=== PATIENT | female | born 1970 | race Caucasian/White ===

== ENCOUNTER 2019-12-23 14:11 | Inpatient (IN) | payer OTHER ==
--- NOTE | 2019-12-23 14:07 | BHS.RME ---
Substance Use & Tx History - Substance Use History Heroin Substance amount: 2 bundles Frequency of use: Daily Substance route: Inhalation (ex: sniffing or snorting) Date of Last Use: 12/22/19 (started 6 months ago) Other Opiates/Synthetics Substance amount: oxycodone prescribed and then illicit use Frequency of use: Daily Substance route: Oral Date of Last Use: 12/02/19 (started 2 years ago) Nicotine Frequency of use: Daily Substance route: Smoking Physical/Psych/Mental Status - Behavior General Behavior: Increased activity (restlessness, agitation) Eye Contact: Normal - Cooperativeness Cooperativeness: Cooperative - Thinking Thought Processes: Tight, Logical, Goal Directed - Physical Health Problems Is patient presently having any pain?: No Does patient presently have any injuries (include location): No Does patient currently have a fever: No Is patient : No COWS - Scale Resting Pulse: 1= [place] 81-100 Sweatin= Beads of Sweat on Face Restless Observation: 1= Difficult to Sit Still Pupil Size: 1= Pupils >than Normal Bone or Joint Aches: 2= Severe Diffuse Aches Runny Nose/ Eye Tearin= Runny Nose/Eyes GI Upset > 30mins: 3= Vomiting/Diarrhea Tremor Observation: 1= Tremor [place], Not Seen Yawning Observation: 1= 1-2x During Session Anxiety or Irritability: 1=Feels Anxious/Irritable Goose Flesh Skin: 0=Smooth Skin COWS Score: 16
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
[2019-12-23] MEDS ORDERED: NICOTINE POLACRILEX 2 MG GUM BUC PRN (15:33)
[2019-12-23] MEDS ORDERED: BISMUTH SUBSALICYLATE 524 MG/30 ML UD PO PRN (15:33)
[2019-12-23] MEDS ORDERED: ACETAMINOPHEN 325 MG TABLET (FP) PO PRN (15:33)
[2019-12-23] MEDS ORDERED: MAGNESIUM HYDROX 2400MG/30ML ORAL SUSPENSION 30 ML CUP PO PRN (15:33)
[2019-12-23] MEDS ORDERED: MENTHOL/PHENOL 1 EACH UD MM PRN (15:33)
[2019-12-23] MEDS ORDERED: MAGNESIUM CITRATE 300 ML BOTTLE PO PRN (15:33)
[2019-12-23] MEDS ORDERED: cloNIDine HCL 0.1 MG TABLET PO PRN (15:33)
[2019-12-23] MEDS ORDERED: METHADONE HCL 10 MG TABLET (FOR DETOX USE ONLY) ONE (15:33)
[2019-12-23] MEDS ORDERED: MAG HYDROX/AL HYDROX/SIMETH 30 ML UNIT-DOSE CUP PO PRN (15:33)
[2019-12-23] MEDS ORDERED: METHADONE HCL 10 MG TABLET (FOR DETOX USE ONLY) PO ONE ×2 (15:33→15:36)
[2019-12-23 15:46] VITALS: BMI 37.3
[2019-12-23 16:50] LABS: MCH 23.1 pg (25.7-33.7); MCHC 30.4 g/dl (32.0-36.0); MEAN CELL VOLUME 75.8 fl (80-96); MEAN PLT VOLUME 9.5 fl (7.5-11.1); PLATELET COUNT 387 K/MM3 (134-434); RBC 4.35 M/mm3 (3.60-5.2); RDW 17.6 % (11.6-15.6); WHITE BLOOD COUNT 6.7 K/mm3 (4.0-10.0)
[2019-12-23 17:05] LABS: ALBUMIN 4.1 g/dl (3.4-5.0); BILIRUBIN,TOTAL 0.2 mg/dL (0.2-1); BLOOD UREA NITROGEN 8.2 mg/dL (7-18); CALCIUM 9.5 mg/dL (8.5-10.1); CREATININE 0.6 mg/dL (0.55-1.3); POTASSIUM 3.7 mmol/L (3.5-5.1); TOT PROT 7.7 g/dl (6.4-8.2)
[2019-12-23] MEDS: METHOCARBAMOL 500 MG TABLET PO PRN (18:00)
[2019-12-23] MEDS: hydrOXYzine PAMOATE 25 MG CAPSULE (FP) PO SCH ×2 (18:00→22:07)
[2019-12-23] MEDS: PRENATAL VITAMINS W/ FOLIC ACID TABLET (FP) PO SCH (18:39)
[2019-12-23] MEDS: NICOTINE 7 MG/24 HOURS TOPICAL PATCH TD SCH (18:39)
[2019-12-23] MEDS: ACETAMINOPHEN 325 MG TABLET (FP) PO PRN (19:23)
[2019-12-23] MEDS: IBUPROFEN 400 MG TABLET (FP) PO PRN (22:06)
[2019-12-23] MEDS: THIAMINE HCL 100 MG TABLET (FP) PO SCH (22:08)
[2019-12-23] MEDS: MELATONIN 5 MG TABLETS PO SCH (22:08)
[2019-12-24] MEDS: METHOCARBAMOL 500 MG TABLET PO PRN ×3 (01:54→17:27)
[2019-12-24] MEDS: hydrOXYzine PAMOATE 25 MG CAPSULE (FP) PO SCH ×5 (05:33→22:15)
[2019-12-24] MEDS: IBUPROFEN 400 MG TABLET (FP) PO PRN ×3 (05:35→23:33)
[2019-12-24] MEDS ORDERED: METHADONE HCL 10 MG TABLET (FOR DETOX USE ONLY) ONE (09:20)
[2019-12-24] MEDS ORDERED: METHADONE HCL 5 MG TABLET (FOR DETOX USE ONLY) ONE (09:21)
[2019-12-24] MEDS ORDERED: METHADONE (DETOX) 20 MG, METHADONE (DETOX) 5 MG PO ONE (10:00)
--- NOTE | 2019-12-24 10:13 | EKG ---
Test Reason : Blood Pressure : / mmHG Vent. Rate : 085 BPM Atrial Rate : 085 BPM P-R Int : 132 ms QRS Dur : 076 ms QT Int : 392 ms P-R-T Axes : 058 025 006 degrees QTc Int : 466 ms NORMAL SINUS RHYTHM NONSPECIFIC ST ABNORMALITY ABNORMAL ECG NO PREVIOUS ECGS AVAILABLE Confirmed by MD Sandie, Davey ([id number]) on 12/24/2019 10:13:23 AM Referred By: Confirmed By:Davey Hooper MD
[2019-12-24] MEDS: PRENATAL VITAMINS W/ FOLIC ACID TABLET (FP) PO SCH (10:27)
[2019-12-24] MEDS: diazePAM 5 MG TABLET PO PRN ×2 (10:28→22:15)
[2019-12-24] MEDS: NICOTINE 7 MG/24 HOURS TOPICAL PATCH TD SCH (10:30)
--- NOTE | 2019-12-24 10:51 | PN ---
S COWS - Scale Resting Pulse: 0= [place] 80 or Below Sweatin= No chills or Flushing Restless Observation: 0= Sits Still Pupil Size: 1= Pupils >than Normal Bone or Joint Aches: 2= Severe Diffuse Aches Runny Nose/ Eye Tearin= Runny Nose/Eyes GI Upset > 30mins: 2= Nausea/Diarrhea Tremor Observation of Outstretched Hands: 2= Slight Tremor Visible Yawning Observation: 1= 1-2x During Session Anxiety or Irritability: 2=Irritable/Anxious Goose Flesh Skin: 0=Smooth Skin COWS Score: 12 S Progress Note (SOAP) Subjective: alert,irritable,anxious,interrupted sleep,tremor,pain in the body and back,nausea Objective: 12/24/19 17:30 Vital Signs Temperature 97.5 F L 12/24/19 16:52 Pulse Rate 77 12/24/19 16:52 Respiratory Rate 18 12/24/19 16:52 Blood Pressure 113/78 12/24/19 16:52 O2 Sat by Pulse Oximetry (%) 96 12/24/19 08:37 12/24/19 17:30 Laboratory Last Values WBC 6.7 K/mm3 (4.0-10.0) 12/23/19 15:25 RBC 4.35 M/mm3 (3.60-5.2) 12/23/19 15:25 Hgb 10.0 GM/dL (10.7-15.3) L 12/23/19 15:25 Hct 33.0 % (32.4-45.2) 12/23/19 15:25 MCV 75.8 fl (80-96) L 12/23/19 15:25 MCH 23.1 pg (25.7-33.7) L 12/23/19 15:25 MCHC 30.4 g/dl (32.0-36.0) L 12/23/19 15:25 RDW 17.6 % (11.6-15.6) H 12/23/19 15:25 Plt Count 387 K/MM3 (134-434) 12/23/19 15:25 MPV 9.5 fl (7.5-11.1) 12/23/19 15:25 Sodium 140 mmol/L (136-145) 12/23/19 15:25 Potassium 3.7 mmol/L (3.5-5.1) 12/23/19 15:25 Chloride 107 mmol/L (98-107) 12/23/19 15:25 Carbon Dioxide 25 mmol/L (21-32) 12/23/19 15:25 Anion Gap 8 MMOL/L (8-16) 12/23/19 15:25 BUN 8.2 mg/dL (7-18) 12/23/19 15:25 Creatinine 0.6 mg/dL (0.55-1.3) 12/23/19 15:25 Est GFR (CKD-EPI)AfAm 125.80 12/23/19 15:25 Est GFR (CKD-EPI)NonAf 108.54 12/23/19 15:25 Random Glucose 128 mg/dL (74-106) H 12/23/19 15:25 Calcium 9.5 mg/dL (8.5-10.1) 12/23/19 15:25 Total Bilirubin 0.2 mg/dL (0.2-1) 12/23/19 15:25 AST 10 U/L (15-37) L 12/23/19 15:25 ALT 13 U/L (13-61) 12/23/19 15:25 Alkaline Phosphatase 83 U/L (45-117) 12/23/19 15:25 Total Protein 7.7 g/dl (6.4-8.2) 12/23/19 15:25 Albumin 4.1 g/dl (3.4-5.0) 12/23/19 15:25 Syphilis Serology Non-reactive (NONREACTIVE) 12/23/19 15:25 Assessment: 12/24/19 17:31 withdrawal symptom Plan: continue detox methadone regimen,fasting glucose in am,initial glucose 128
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
[2019-12-24] MEDS: ACETAMINOPHEN 325 MG TABLET (FP) PO PRN (19:45)
[2019-12-24] MEDS: ONDANSETRON *ODT* 4 MG TABLET SL PRN (19:46)
[2019-12-24] MEDS: THIAMINE HCL 100 MG TABLET (FP) PO SCH (22:15)
[2019-12-24] MEDS: MELATONIN 5 MG TABLETS PO SCH (22:15)
[2019-12-25] MEDS: diazePAM 5 MG TABLET PO PRN ×2 (03:51→18:11)
[2019-12-25] MEDS: ONDANSETRON *ODT* 4 MG TABLET SL PRN (03:51)
[2019-12-25] MEDS: METHOCARBAMOL 500 MG TABLET PO PRN ×2 (03:51→13:34)
[2019-12-25] MEDS: ACETAMINOPHEN 325 MG TABLET (FP) PO PRN ×2 (03:51→22:10)
[2019-12-25] MEDS: LEVOTHYROXINE NA 100 MCG TABLET (FP) PO SCH (05:59)
[2019-12-25] MEDS: IBUPROFEN 400 MG TABLET (FP) PO PRN (05:59)
[2019-12-25] MEDS: hydrOXYzine PAMOATE 25 MG CAPSULE (FP) PO SCH ×5 (06:00→22:09)
[2019-12-25] MEDS ORDERED: TRIMETHOBENZAMIDE HCL 200MG/2ML INJ IM PRN (08:52)
[2019-12-25] MEDS ORDERED: METHADONE HCL 10 MG TABLET (FOR DETOX USE ONLY) PO ONE (10:00)
[2019-12-25 10:35] LABS: HEMATOCRIT 29.6 % (32.4-45.2); HEMOGLOBIN 9.1 GM/dL (10.7-15.3); MCH 23.1 pg (25.7-33.7); MCHC 30.6 g/dl (32.0-36.0); MEAN CELL VOLUME 75.5 fl (80-96); MEAN PLT VOLUME 9.6 fl (7.5-11.1); PLATELET COUNT 302 K/MM3 (134-434); RBC 3.92 M/mm3 (3.60-5.2); RDW 17.6 % (11.6-15.6); WHITE BLOOD COUNT 6.1 K/mm3 (4.0-10.0)
[2019-12-25] MEDS: NICOTINE 7 MG/24 HOURS TOPICAL PATCH TD SCH (10:41)
[2019-12-25] MEDS: ESCITALOPRAM OXALATE 10 MG TABLET PO SCH (10:45)
[2019-12-25] MEDS: PRENATAL VITAMINS W/ FOLIC ACID TABLET (FP) PO SCH (10:45)
[2019-12-25] MEDS: IBUPROFEN 600 MG TABLET (FP) PO PRN (10:46)
[2019-12-25] MEDS: LIDOCAINE 5% TOPICAL PATCH TP SCH (12:09)
--- NOTE | 2019-12-25 12:56 | PN ---
S COWS - Scale Resting Pulse: 1= [place] 81-100 Sweatin= No chills or Flushing Restless Observation: 0= Sits Still Pupil Size: 1= Pupils >than Normal Bone or Joint Aches: 2= Severe Diffuse Aches Runny Nose/ Eye Tearin= Nasal Congestion GI Upset > 30mins: 3= Vomiting/Diarrhea Tremor Observation of Outstretched Hands: 2= Slight Tremor Visible Yawning Observation: 1= 1-2x During Session Anxiety or Irritability: 2=Irritable/Anxious Goose Flesh Skin: 0=Smooth Skin COWS Score: 13 BHS Progress Note (SOAP) Subjective: alert,irritable,anxious,nausea,vomiting,aching pain in the body,back,both knees,tremor Objective: 12/25/19 17:46 Vital Signs Temperature 97.7 F 12/25/19 12:51 Pulse Rate 84 12/25/19 12:51 Respiratory Rate 16 12/25/19 12:51 Blood Pressure 102/65 12/25/19 12:51 O2 Sat by Pulse Oximetry (%) 95 12/25/19 12:51 Laboratory Last Values WBC 6.1 K/mm3 (4.0-10.0) 12/25/19 07:00 RBC 3.92 M/mm3 (3.60-5.2) 12/25/19 07:00 Hgb 9.1 GM/dL (10.7-15.3) L 12/25/19 07:00 Hct 29.6 % (32.4-45.2) L 12/25/19 07:00 MCV 75.5 fl (80-96) L 12/25/19 07:00 MCH 23.1 pg (25.7-33.7) L 12/25/19 07:00 MCHC 30.6 g/dl (32.0-36.0) L 12/25/19 07:00 RDW 17.6 % (11.6-15.6) H 12/25/19 07:00 Plt Count 302 K/MM3 (134-434) D 12/25/19 07:00 MPV 9.6 fl (7.5-11.1) 12/25/19 07:00 Sodium 140 mmol/L (136-145) 12/23/19 15:25 Potassium 3.7 mmol/L (3.5-5.1) 12/23/19 15:25 Chloride 107 mmol/L (98-107) 12/23/19 15:25 Carbon Dioxide 25 mmol/L (21-32) 12/23/19 15:25 Anion Gap 8 MMOL/L (8-16) 12/23/19 15:25 BUN 8.2 mg/dL (7-18) 12/23/19 15:25 Creatinine 0.6 mg/dL (0.55-1.3) 12/23/19 15:25 Est GFR (CKD-EPI)AfAm 125.80 12/23/19 15:25 Est GFR (CKD-EPI)NonAf 108.54 12/23/19 15:25 Random Glucose 128 mg/dL (74-106) H 12/23/19 15:25 Fasting Glucose 75 mg/dL (74-106) 12/25/19 07:00 Calcium 9.5 mg/dL (8.5-10.1) 12/23/19 15:25 Total Bilirubin 0.2 mg/dL (0.2-1) 12/23/19 15:25 AST 10 U/L (15-37) L 12/23/19 15:25 ALT 13 U/L (13-61) 12/23/19 15:25 Alkaline Phosphatase 83 U/L (45-117) 12/23/19 15:25 Total Protein 7.7 g/dl (6.4-8.2) 12/23/19 15:25 Albumin 4.1 g/dl (3.4-5.0) 12/23/19 15:25 POC Urine HCG, Qual Negative 12/23/19 16:03 Syphilis Serology Non-reactive (NONREACTIVE) 12/23/19 15:25 COVID-19 (GIUSEPPE) Not detected (Not Detected) 12/23/19 16:35 Assessment: 12/25/19 17:47 withdrawal symptom Plan: continue detox methadone regimen,tigan 200 mgs im q 8hrs prn for vomiting and nausea,lidoderm patch both knees,increase motrintn to 600 mgs poq 6hrs prn for pain,close monitoring,psychiatric reevaluation
[2019-12-25] MEDS: MELATONIN 5 MG TABLETS PO SCH (22:08)
[2019-12-25] MEDS: LIDOCAINE PATCH REMOVAL MC SCH (22:08)
[2019-12-25] MEDS: THIAMINE HCL 100 MG TABLET (FP) PO SCH (22:09)
[2019-12-26] MEDS: IBUPROFEN 600 MG TABLET (FP) PO PRN ×3 (05:54→23:43)
[2019-12-26] MEDS: hydrOXYzine PAMOATE 25 MG CAPSULE (FP) PO SCH ×5 (05:54→22:28)
[2019-12-26] MEDS: diazePAM 5 MG TABLET PO PRN ×3 (05:54→22:28)
[2019-12-26] MEDS: LEVOTHYROXINE NA 100 MCG TABLET (FP) PO SCH (06:02)
[2019-12-26] MEDS ORDERED: METHADONE HCL 10 MG TABLET (FOR DETOX USE ONLY) ONE (08:50)
[2019-12-26] MEDS ORDERED: METHADONE HCL 5 MG TABLET (FOR DETOX USE ONLY) ONE (08:51)
[2019-12-26] MEDS: PRENATAL VITAMINS W/ FOLIC ACID TABLET (FP) PO SCH (09:17)
[2019-12-26] MEDS: LIDOCAINE 5% TOPICAL PATCH TP SCH (09:17)
[2019-12-26] MEDS: ESCITALOPRAM OXALATE 10 MG TABLET PO SCH (09:18)
[2019-12-26] MEDS: NICOTINE 7 MG/24 HOURS TOPICAL PATCH TD SCH (09:18)
[2019-12-26] MEDS ORDERED: METHADONE (DETOX) 10 MG, METHADONE (DETOX) 5 MG PO ONE (10:00)
[2019-12-26] MEDS: METHOCARBAMOL 500 MG TABLET PO PRN ×2 (10:23→17:57)
--- NOTE | 2019-12-26 10:28 | PN ---
BHS COWS - Scale Resting Pulse: 0= [place] 80 or Below Sweatin= No chills or Flushing Restless Observation: 0= Sits Still Pupil Size: 0= Normal to Room Light Bone or Joint Aches: 1= Mild Discomfort Runny Nose/ Eye Tearin= Runny Nose/Eyes GI Upset > 30mins: 2= Nausea/Diarrhea Tremor Observation of Outstretched Hands: 2= Slight Tremor Visible Yawning Observation: 1= 1-2x During Session Anxiety or Irritability: 2=Irritable/Anxious Goose Flesh Skin: 0=Smooth Skin COWS Score: 10 BHS Progress Note (SOAP) Subjective: alert,irritable,anxious,interrupted sleep,aching pain in the body,back,both knees,nausea,no vomiting Objective: 12/26/19 17:23 Laboratory Last Values WBC 6.1 K/mm3 (4.0-10.0) 12/25/19 07:00 RBC 3.92 M/mm3 (3.60-5.2) 12/25/19 07:00 Hgb 9.1 GM/dL (10.7-15.3) L 12/25/19 07:00 Hct 29.6 % (32.4-45.2) L 12/25/19 07:00 MCV 75.5 fl (80-96) L 12/25/19 07:00 MCH 23.1 pg (25.7-33.7) L 12/25/19 07:00 MCHC 30.6 g/dl (32.0-36.0) L 12/25/19 07:00 RDW 17.6 % (11.6-15.6) H 12/25/19 07:00 Plt Count 302 K/MM3 (134-434) D 12/25/19 07:00 MPV 9.6 fl (7.5-11.1) 12/25/19 07:00 Sodium 140 mmol/L (136-145) 12/23/19 15:25 Potassium 3.7 mmol/L (3.5-5.1) 12/23/19 15:25 Chloride 107 mmol/L (98-107) 12/23/19 15:25 Carbon Dioxide 25 mmol/L (21-32) 12/23/19 15:25 Anion Gap 8 MMOL/L (8-16) 12/23/19 15:25 BUN 8.2 mg/dL (7-18) 12/23/19 15:25 Creatinine 0.6 mg/dL (0.55-1.3) 12/23/19 15:25 Est GFR (CKD-EPI)AfAm 125.80 12/23/19 15:25 Est GFR (CKD-EPI)NonAf 108.54 12/23/19 15:25 Random Glucose 128 mg/dL (74-106) H 12/23/19 15:25 Fasting Glucose 75 mg/dL (74-106) 12/25/19 07:00 Calcium 9.5 mg/dL (8.5-10.1) 12/23/19 15:25 Total Bilirubin 0.2 mg/dL (0.2-1) 12/23/19 15:25 AST 10 U/L (15-37) L 12/23/19 15:25 ALT 13 U/L (13-61) 12/23/19 15:25 Alkaline Phosphatase 83 U/L (45-117) 12/23/19 15:25 Total Protein 7.7 g/dl (6.4-8.2) 12/23/19 15:25 Albumin 4.1 g/dl (3.4-5.0) 12/23/19 15:25 POC Urine HCG, Qual Negative 12/23/19 16:03 Syphilis Serology Non-reactive (NONREACTIVE) 12/23/19 15:25 COVID-19 (GIUSEPPE) Not detected (Not Detected) 12/23/19 16:35 Assessment: 12/26/19 17:23 withdrawal symptom Plan: continue detox methadone regimen,fluid
[2019-12-26] MEDS: LIDOCAINE PATCH REMOVAL MC SCH (22:27)
[2019-12-26] MEDS: MELATONIN 5 MG TABLETS PO SCH (22:27)
[2019-12-26] MEDS: THIAMINE HCL 100 MG TABLET (FP) PO SCH (22:28)
[2019-12-27] MEDS: METHOCARBAMOL 500 MG TABLET PO PRN ×3 (06:00→19:56)
[2019-12-27] MEDS: hydrOXYzine PAMOATE 25 MG CAPSULE (FP) PO SCH ×5 (06:01→22:25)
[2019-12-27] MEDS: LEVOTHYROXINE NA 100 MCG TABLET (FP) PO SCH (06:11)
[2019-12-27] MEDS: IBUPROFEN 600 MG TABLET (FP) PO PRN ×3 (06:11→19:57)
[2019-12-27] MEDS: PRENATAL VITAMINS W/ FOLIC ACID TABLET (FP) PO SCH (09:32)
[2019-12-27] MEDS: LIDOCAINE 5% TOPICAL PATCH TP SCH (09:32)
[2019-12-27] MEDS: ESCITALOPRAM OXALATE 10 MG TABLET PO SCH (09:34)
[2019-12-27] MEDS: NICOTINE 7 MG/24 HOURS TOPICAL PATCH TD SCH (09:35)
[2019-12-27] MEDS ORDERED: METHADONE HCL 10 MG TABLET (FOR DETOX USE ONLY) PO ONE (10:00)
--- NOTE | 2019-12-27 13:02 | PN ---
BHS COWS - Scale Resting Pulse: 0= [place] 80 or Below Sweatin= No chills or Flushing Restless Observation: 0= Sits Still Pupil Size: 0= Normal to Room Light Bone or Joint Aches: 2= Severe Diffuse Aches Runny Nose/ Eye Tearin= None GI Upset > 30mins: 1= Stomach Cramp Tremor Observation of Outstretched Hands: 0= None Yawning Observation: 0= None Anxiety or Irritability: 2=Irritable/Anxious Goose Flesh Skin: 0=Smooth Skin COWS Score: 5 BHS Progress Note (SOAP) Subjective: c/o mild withdrawal symptoms. Objective: 12/27/19 13:00 Vital Signs 12/27/19 12/27/19 12/27/19 05:55 08:50 12:36 Temperature 97.1 F L 97.1 F L 97.3 F L Pulse Rate 82 89 90 Respiratory 18 16 18 Rate Blood Pressure 106/74 126/72 133/89 O2 Sat by Pulse 96 97 Oximetry (%) Laboratory Last Values WBC 6.1 K/mm3 (4.0-10.0) 12/25/19 07:00 RBC 3.92 M/mm3 (3.60-5.2) 12/25/19 07:00 Hgb 9.1 GM/dL (10.7-15.3) L 12/25/19 07:00 Hct 29.6 % (32.4-45.2) L 12/25/19 07:00 MCV 75.5 fl (80-96) L 12/25/19 07:00 MCH 23.1 pg (25.7-33.7) L 12/25/19 07:00 MCHC 30.6 g/dl (32.0-36.0) L 12/25/19 07:00 RDW 17.6 % (11.6-15.6) H 12/25/19 07:00 Plt Count 302 K/MM3 (134-434) D 12/25/19 07:00 MPV 9.6 fl (7.5-11.1) 12/25/19 07:00 Sodium 140 mmol/L (136-145) 12/23/19 15:25 Potassium 3.7 mmol/L (3.5-5.1) 12/23/19 15:25 Chloride 107 mmol/L (98-107) 12/23/19 15:25 Carbon Dioxide 25 mmol/L (21-32) 12/23/19 15:25 Anion Gap 8 MMOL/L (8-16) 12/23/19 15:25 BUN 8.2 mg/dL (7-18) 12/23/19 15:25 Creatinine 0.6 mg/dL (0.55-1.3) 12/23/19 15:25 Est GFR (CKD-EPI)AfAm 125.80 12/23/19 15:25 Est GFR (CKD-EPI)NonAf 108.54 12/23/19 15:25 Random Glucose 128 mg/dL (74-106) H 12/23/19 15:25 Fasting Glucose 75 mg/dL (74-106) 12/25/19 07:00 Calcium 9.5 mg/dL (8.5-10.1) 12/23/19 15:25 Total Bilirubin 0.2 mg/dL (0.2-1) 12/23/19 15:25 AST 10 U/L (15-37) L 12/23/19 15:25 ALT 13 U/L (13-61) 12/23/19 15:25 Alkaline Phosphatase 83 U/L (45-117) 12/23/19 15:25 Total Protein 7.7 g/dl (6.4-8.2) 12/23/19 15:25 Albumin 4.1 g/dl (3.4-5.0) 12/23/19 15:25 POC Urine HCG, Qual Negative 12/23/19 16:03 Syphilis Serology Non-reactive (NONREACTIVE) 12/23/19 15:25 COVID-19 (GIUSEPPE) Not detected (Not Detected) 12/23/19 16:35 Labs noted. Assessment: 12/27/19 13:01 AOX3, in no acute respiratory distress. Full ROM, ambulating in the unit. Mild Withdrawal symptoms. For d/c tomorrow. Plan: continue detox. D/C in AM.
[2019-12-27 17:38] VITALS: TEMP 97.1
[2019-12-27] MEDS: ACETAMINOPHEN 325 MG TABLET (FP) PO PRN (17:38)
[2019-12-27] MEDS: THIAMINE HCL 100 MG TABLET (FP) PO SCH (22:25)
[2019-12-27] MEDS: MELATONIN 5 MG TABLETS PO SCH (22:25)
[2019-12-27] MEDS: LIDOCAINE PATCH REMOVAL MC SCH (22:26)
[2019-12-28] MEDS: ACETAMINOPHEN 325 MG TABLET (FP) PO PRN (00:47)
[2019-12-28] MEDS: METHOCARBAMOL 500 MG TABLET PO PRN (02:42)
[2019-12-28] MEDS: IBUPROFEN 600 MG TABLET (FP) PO PRN ×2 (02:45→08:55)
[2019-12-28] MEDS: hydrOXYzine PAMOATE 25 MG CAPSULE (FP) PO SCH (05:48)
[2019-12-28] MEDS ORDERED: METHADONE HCL 5 MG TABLET (FOR DETOX USE ONLY) PO ONE (06:00)
[2019-12-28 06:24] VITALS: BP 121/76; PULSE 77
[2019-12-28] MEDS: LEVOTHYROXINE NA 100 MCG TABLET (FP) PO SCH (06:41)
[2019-12-28] MEDS: ONDANSETRON *ODT* 4 MG TABLET SL PRN (08:55)
--- NOTE | 2019-12-28 13:12 | DS ---
[facility] Detox Discharge Summary Admission Date: 12/23/19 Discharge Date: 12/28/19 - History Present History: Opioid Dependence Additional Comments: Pt is medically cleared and discharged today. Pt completed the detox protocol. Pt is encouraged to follow-up with an outpatient CD program and also to follow- up with her pmd which she verbalized understanding. Pt is AOX3, in no acute respiratory distress, Full ROM, and ambulatory. Pertinent Past History: h/o heroin use disorder. - Physical Exam Results Vital Signs: Vital Signs Temperature 97.1 F L 12/28/19 06:24 Pulse Rate 77 12/28/19 06:24 Respiratory Rate 16 12/28/19 06:24 Blood Pressure 121/76 12/28/19 06:24 O2 Sat by Pulse Oximetry (%) 97 12/28/19 06:24 Vital Signs 12/28/19 06:24 Temperature 97.1 F L Pulse Rate 77 Respiratory 16 Rate Blood Pressure 121/76 O2 Sat by Pulse 97 Oximetry (%) Laboratory Last Values WBC 6.1 K/mm3 (4.0-10.0) 12/25/19 07:00 RBC 3.92 M/mm3 (3.60-5.2) 12/25/19 07:00 Hgb 9.1 GM/dL (10.7-15.3) L 12/25/19 07:00 Hct 29.6 % (32.4-45.2) L 12/25/19 07:00 MCV 75.5 fl (80-96) L 12/25/19 07:00 MCH 23.1 pg (25.7-33.7) L 12/25/19 07:00 MCHC 30.6 g/dl (32.0-36.0) L 12/25/19 07:00 RDW 17.6 % (11.6-15.6) H 12/25/19 07:00 Plt Count 302 K/MM3 (134-434) D 12/25/19 07:00 MPV 9.6 fl (7.5-11.1) 12/25/19 07:00 Sodium 140 mmol/L (136-145) 12/23/19 15:25 Potassium 3.7 mmol/L (3.5-5.1) 12/23/19 15:25 Chloride 107 mmol/L (98-107) 12/23/19 15:25 Carbon Dioxide 25 mmol/L (21-32) 12/23/19 15:25 Anion Gap 8 MMOL/L (8-16) 12/23/19 15:25 BUN 8.2 mg/dL (7-18) 12/23/19 15:25 Creatinine 0.6 mg/dL (0.55-1.3) 12/23/19 15:25 Est GFR (CKD-EPI)AfAm 125.80 12/23/19 15:25 Est GFR (CKD-EPI)NonAf 108.54 12/23/19 15:25 Random Glucose 128 mg/dL (74-106) H 12/23/19 15:25 Fasting Glucose 75 mg/dL (74-106) 12/25/19 07:00 Calcium 9.5 mg/dL (8.5-10.1) 12/23/19 15:25 Total Bilirubin 0.2 mg/dL (0.2-1) 12/23/19 15:25 AST 10 U/L (15-37) L 12/23/19 15:25 ALT 13 U/L (13-61) 12/23/19 15:25 Alkaline Phosphatase 83 U/L (45-117) 12/23/19 15:25 Total Protein 7.7 g/dl (6.4-8.2) 12/23/19 15:25 Albumin 4.1 g/dl (3.4-5.0) 12/23/19 15:25 POC Urine HCG, Qual Negative 12/23/19 16:03 Syphilis Serology Non-reactive (NONREACTIVE) 12/23/19 15:25 COVID-19 (GIUSEPPE) Not detected (Not Detected) 12/23/19 16:35 Pertinent Admission Physical Exam Findings: withdrawal symptoms. - Treatment Hospital Course: Detox Protocol Followed, Detoxed Safely, Responded well, Discharged Condition Good - Medication Discharge Medications: Ambulatory Orders Levothyroxine [Synthroid -] 100 mcg PO DAILY 12/23/19 - Diagnosis (1) Chronic low back pain Status: Chronic (2) Opioid dependence with withdrawal Status: Acute (3) Opioid use disorder Status: Chronic - AMA Did Patient Leave Against Medical Advice: No
== END 2019-12-28 09:10 | disposition home or self-care (01) | DRG 897 ==
LOC: YASAS 14:11 → Y3N 16:29
PROVIDERS: ADMIT Allergy & Immunology; ATTEND Allergy & Immunology
PROC: HZ2ZZZZ Detoxification Services for Substance Abuse Treatment (ICD-10-PCS; principal; 2019-12-23)
DX: F11.23 Opioid dependence with withdrawal (principal); F13.20 Sedative, hypnotic or anxiolytic dependence, uncomplicated; F17.210 Nicotine dependence, cigarettes, uncomplicated; F32.9 Major depressive disorder, single episode, unspecified; F41.9 Anxiety disorder, unspecified; F42.9 Obsessive-compulsive disorder, unspecified; E06.9 Thyroiditis, unspecified; M54.5 Low back pain; M23.300 Other meniscus derangements, unspecified lateral meniscus, right knee; M23.301 Other meniscus derangements, unspecified lateral meniscus, left knee; G89.29 Other chronic pain; E66.9 Obesity, unspecified; Z68.37 Body mass index [BMI] 37.0-37.9, adult; Z87.828 Personal history of other (healed) physical injury and trauma; Z88.0 Allergy status to penicillin
CPT/HCPCS: 36415; 80053; 81025; 82947; 85027; 86780; 93005; 93010; J0735; Q0162; U0003

== ENCOUNTER 2020-03-16 12:09 | Inpatient (IN) | payer OTHER ==
[2020-03-16 13:39] VITALS: BMI 37.6
[2020-03-16] MEDS ORDERED: MENTHOL/PHENOL 1 EACH UD MM PRN (14:11)
[2020-03-16] MEDS ORDERED: MAGNESIUM HYDROX 2400MG/30ML ORAL SUSPENSION 30 ML CUP PO PRN (14:11)
[2020-03-16] MEDS ORDERED: MAGNESIUM CITRATE 300 ML BOTTLE PO PRN (14:11)
[2020-03-16] MEDS ORDERED: ACETAMINOPHEN 325 MG TABLET (FP) PO PRN (14:11)
[2020-03-16] MEDS ORDERED: BISMUTH SUBSALICYLATE 524 MG/30 ML PO PRN (14:11)
[2020-03-16] MEDS ORDERED: NICOTINE POLACRILEX 2 MG GUM BUC PRN (14:11)
[2020-03-16] MEDS ORDERED: MAG HYDROX/AL HYDROX/SIMETH 30 ML UNIT-DOSE CUP PO PRN (14:11)
[2020-03-16] MEDS ORDERED: hydrOXYzine PAMOATE 25 MG CAPSULE (FP) PO ONE ×2 (15:09→15:35)
[2020-03-16] MEDS ORDERED: methaDONE HCL 10 MG TABLET (FOR DETOX USE ONLY) PO ONE (15:15)
[2020-03-16] MEDS ORDERED: methaDONE HCL 10 MG TABLET (FOR DETOX USE ONLY) ONE (15:29)
[2020-03-16] MEDS ORDERED: IBUPROFEN 400 MG TABLET (FP) PO ONE (15:36)
[2020-03-16] MEDS: IBUPROFEN 400 MG TABLET (FP) PO PRN (15:38)
[2020-03-16] MEDS: METHOCARBAMOL 500 MG TABLET PO PRN ×2 (17:05→22:43)
[2020-03-16] MEDS: cloNIDine HCL 0.1 MG TABLET PO PRN ×2 (17:05→22:43)
[2020-03-16 17:23] LABS: HEMATOCRIT 33.5 % (32.4-45.2); HEMOGLOBIN 10.1 GM/dL (10.7-15.3); MCH 22.7 pg (25.7-33.7); MCHC 30.1 g/dl (32.0-36.0); MEAN CELL VOLUME 75.6 fl (80-96); MEAN PLT VOLUME 9.4 fl (7.5-11.1); PLATELET COUNT 338 K/MM3 (134-434); RBC 4.44 M/mm3 (3.60-5.2); RDW 16.8 % (11.6-15.6)
[2020-03-16 17:28] LABS: ALBUMIN 4.1 g/dl (3.4-5.0); BLOOD UREA NITROGEN 9.5 mg/dL (7-18); CALCIUM 9.5 mg/dL (8.5-10.1)
[2020-03-16 17:32] LABS: CREATININE 0.6 mg/dL (0.55-1.3)
[2020-03-16 17:33] LABS: BILIRUBIN,TOTAL 0.3 mg/dL (0.2-1); TOT PROT 7.7 g/dl (6.4-8.2)
[2020-03-16] MEDS: hydrOXYzine PAMOATE 25 MG CAPSULE (FP) PO SCH ×2 (20:16→22:43)
[2020-03-16] MEDS: THIAMINE HCL 100 MG TABLET (FP) PO SCH (22:43)
[2020-03-16] MEDS: ACETAMINOPHEN 325 MG TABLET (FP) PO PRN (22:44)
[2020-03-16] MEDS: MELATONIN 5 MG TABLETS PO SCH (22:45)
[2020-03-17] MEDS: METHOCARBAMOL 500 MG TABLET PO PRN (05:40)
[2020-03-17] MEDS: hydrOXYzine PAMOATE 25 MG CAPSULE (FP) PO SCH ×5 (05:41→22:16)
[2020-03-17] MEDS: ACETAMINOPHEN 325 MG TABLET (FP) PO PRN (05:42)
[2020-03-17] MEDS: LEVOTHYROXINE NA 100 MCG TABLET (FP) PO SCH (06:07)
[2020-03-17] MEDS ORDERED: methaDONE HCL 10 MG TABLET (FOR DETOX USE ONLY) ONE (09:13)
[2020-03-17] MEDS: PRENATAL VITAMINS W/ FOLIC ACID TABLET (FP) PO SCH (10:06)
[2020-03-17] MEDS: IBUPROFEN 400 MG TABLET (FP) PO PRN ×3 (10:07→19:08)
[2020-03-17] MEDS ORDERED: ACETAMINOPHEN 325 MG TABLET (FP) PO PRN (11:31)
[2020-03-17] MEDS ORDERED: ACETAMINOPHEN 500 MG TABLET (FP) PO PRN (11:33)
[2020-03-17] MEDS: METHYL SALICYLATE/MENTHOL OINT 30 GM TUBE TP SCH (12:03)
[2020-03-17] MEDS: METHOCARBAMOL 750 MG TAB PO PRN ×2 (12:04→18:08)
[2020-03-17] MEDS: cloNIDine HCL 0.1 MG TABLET PO PRN (22:15)
[2020-03-17] MEDS: THIAMINE HCL 100 MG TABLET (FP) PO SCH (22:15)
[2020-03-17] MEDS: MELATONIN 5 MG TABLETS PO SCH (22:16)
[2020-03-18] MEDS: METHYL SALICYLATE/MENTHOL OINT 30 GM TUBE TP SCH ×3 (00:20→21:51)
[2020-03-18] MEDS: hydrOXYzine PAMOATE 25 MG CAPSULE (FP) PO SCH ×5 (07:08→21:48)
[2020-03-18] MEDS: LEVOTHYROXINE NA 100 MCG TABLET (FP) PO SCH (07:08)
[2020-03-18] MEDS: IBUPROFEN 400 MG TABLET (FP) PO PRN ×2 (07:34→15:51)
[2020-03-18] MEDS: METHOCARBAMOL 750 MG TAB PO PRN ×2 (08:38→15:51)
[2020-03-18] MEDS: ONDANSETRON *ODT* 4 MG TABLET SL PRN (08:39)
[2020-03-18] MEDS ORDERED: methaDONE HCL 10 MG TABLET (FOR DETOX USE ONLY) PO ONE (10:00)
[2020-03-18] MEDS: PRENATAL VITAMINS W/ FOLIC ACID TABLET (FP) PO SCH (10:05)
[2020-03-18] MEDS: diazePAM 5 MG TABLET PO PRN ×3 (11:33→21:48)
[2020-03-18] MEDS: LIDOCAINE 5% TOPICAL PATCH TP SCH (11:34)
[2020-03-18] MEDS: THIAMINE HCL 100 MG TABLET (FP) PO SCH (21:48)
[2020-03-18] MEDS: MELATONIN 5 MG TABLETS PO SCH (21:49)
[2020-03-18] MEDS: LIDOCAINE PATCH REMOVAL MC SCH (21:51)
[2020-03-19] MEDS: hydrOXYzine PAMOATE 25 MG CAPSULE (FP) PO SCH ×2 (06:32→10:13)
[2020-03-19] MEDS: LEVOTHYROXINE NA 100 MCG TABLET (FP) PO SCH (06:33)
[2020-03-19] MEDS: diazePAM 5 MG TABLET PO PRN ×3 (06:35→22:18)
[2020-03-19] MEDS: IBUPROFEN 400 MG TABLET (FP) PO PRN ×3 (06:36→22:19)
[2020-03-19] MEDS: METHOCARBAMOL 750 MG TAB PO PRN ×3 (06:52→22:18)
[2020-03-19] MEDS ORDERED: methaDONE HCL 10 MG TABLET (FOR DETOX USE ONLY) ONE (09:14)
[2020-03-19] MEDS: METHYL SALICYLATE/MENTHOL OINT 30 GM TUBE TP SCH ×2 (10:12→22:24)
[2020-03-19] MEDS: LIDOCAINE 5% TOPICAL PATCH TP SCH (10:13)
[2020-03-19] MEDS: PRENATAL VITAMINS W/ FOLIC ACID TABLET (FP) PO SCH (10:13)
[2020-03-19] MEDS ORDERED: hydrOXYzine PAMOATE 25 MG CAPSULE (FP) PO PRN (12:04)
[2020-03-19] MEDS ORDERED: HYDROCORTISONE 1% TOPICAL CREAM 30 GM TUBE TP PRN (13:48)
[2020-03-19] MEDS: ONDANSETRON *ODT* 4 MG TABLET SL PRN (17:37)
[2020-03-19] MEDS: MELATONIN 5 MG TABLETS PO SCH (22:21)
[2020-03-19] MEDS: THIAMINE HCL 100 MG TABLET (FP) PO SCH (22:21)
[2020-03-19] MEDS: LIDOCAINE PATCH REMOVAL MC SCH (22:23)
[2020-03-20] MEDS ORDERED: methaDONE HCL 10 MG TABLET (FOR DETOX USE ONLY) PO ONE ×2 (06:00→10:00)
[2020-03-20] MEDS: IBUPROFEN 400 MG TABLET (FP) PO PRN (06:08)
[2020-03-20] MEDS: METHOCARBAMOL 750 MG TAB PO PRN (06:08)
[2020-03-20] MEDS: LEVOTHYROXINE NA 100 MCG TABLET (FP) PO SCH (06:09)
[2020-03-20 08:56] VITALS: BP 132/88; PULSE 101; TEMP 97.3
[2020-03-20] MEDS: diazePAM 5 MG TABLET PO PRN (09:09)
== END 2020-03-20 11:10 | disposition home or self-care (01) | DRG 897 ==
LOC: YASAS 12:09 → Y6N 16:00
PROVIDERS: ADMIT Allergy & Immunology; ATTEND Allergy & Immunology
PROC: HZ2ZZZZ Detoxification Services for Substance Abuse Treatment (ICD-10-PCS; principal; 2020-03-16)
DX: F19.230 Other psychoactive substance dependence with withdrawal, uncomplicated (principal); F11.23 Opioid dependence with withdrawal; E03.9 Hypothyroidism, unspecified; R03.0 Elevated blood-pressure reading, without diagnosis of hypertension; D50.8 Other iron deficiency anemias; E86.0 Dehydration; E66.9 Obesity, unspecified; Z68.37 Body mass index [BMI] 37.0-37.9, adult; Z86.59 Personal history of other mental and behavioral disorders; Z88.0 Allergy status to penicillin; Z87.891 Personal history of nicotine dependence
CPT/HCPCS: 36415; 80053; 81025; 85027; 86780; C9803; J0735; Q0162; U0003

== ENCOUNTER 2020-09-08 12:36 | Inpatient (IN) | payer OTHER ==
[2020-09-08 14:21] VITALS: BMI 35.9
[2020-09-08] MEDS ORDERED: ONDANSETRON *ODT* 4 MG TABLET SL PRN (15:47)
[2020-09-08] MEDS ORDERED: METHOCARBAMOL 500 MG TABLET PO PRN (15:47)
[2020-09-08] MEDS ORDERED: METHADONE HCL 10 MG TABLET (FOR DETOX USE ONLY) PO ONE (15:47)
[2020-09-08] MEDS ORDERED: cloNIDine HCL 0.1 MG TABLET PO PRN (15:47)
[2020-09-08] MEDS ORDERED: NICOTINE POLACRILEX 2 MG GUM BUC PRN (15:47)
[2020-09-08] MEDS ORDERED: ACETAMINOPHEN 325 MG TABLET (FP) PO PRN (15:47)
[2020-09-08] MEDS ORDERED: BISMUTH SUBSALICYLATE 524 MG/30 ML PO PRN (15:47)
[2020-09-08] MEDS ORDERED: MAGNESIUM HYDROX 2400MG/30ML ORAL SUSPENSION 30 ML CUP PO PRN (15:47)
[2020-09-08] MEDS ORDERED: MENTHOL/PHENOL 1 EACH UD MM PRN (15:47)
[2020-09-08] MEDS ORDERED: MAG HYDROX/AL HYDROX/SIMETH 30 ML UNIT-DOSE CUP PO PRN (15:47)
[2020-09-08] MEDS ORDERED: MAGNESIUM CITRATE 300 ML BOTTLE PO PRN (15:47)
[2020-09-08] MEDS: LEVOTHYROXINE NA 25 MCG TABLET (FP) PO SCH (16:56)
[2020-09-08] MEDS: PRENATAL VITAMINS W/ FOLIC ACID TABLET (FP) PO SCH (16:57)
[2020-09-08] MEDS: NICOTINE 7 MG/24 HOURS TOPICAL PATCH TD SCH (16:57)
[2020-09-08] MEDS: IBUPROFEN 400 MG TABLET (FP) PO PRN (17:01)
[2020-09-08] MEDS: hydrOXYzine PAMOATE 25 MG CAPSULE (FP) PO SCH ×2 (18:01→21:45)
[2020-09-08] MEDS: ACETAMINOPHEN 325 MG TABLET (FP) PO PRN (21:44)
[2020-09-08] MEDS: THIAMINE HCL 100 MG TABLET (FP) PO SCH (21:45)
[2020-09-08] MEDS: MELATONIN 5 MG TABLETS PO SCH (21:47)
[2020-09-09] MEDS: LEVOTHYROXINE NA 25 MCG TABLET (FP) PO SCH (06:45)
[2020-09-09] MEDS: hydrOXYzine PAMOATE 25 MG CAPSULE (FP) PO SCH ×2 (06:46→09:48)
[2020-09-09] MEDS ORDERED: METHADONE HCL 10 MG TABLET (FOR DETOX USE ONLY) ONE (09:11)
[2020-09-09] MEDS ORDERED: METHADONE HCL 5 MG TABLET (FOR DETOX USE ONLY) ONE (09:12)
[2020-09-09] MEDS: PRENATAL VITAMINS W/ FOLIC ACID TABLET (FP) PO SCH (09:48)
[2020-09-09] MEDS: IBUPROFEN 400 MG TABLET (FP) PO PRN ×2 (09:48→22:24)
[2020-09-09] MEDS: NICOTINE 7 MG/24 HOURS TOPICAL PATCH TD SCH (09:49)
[2020-09-09] MEDS ORDERED: METHADONE (DETOX) 20 MG, METHADONE (DETOX) 5 MG PO ONE (10:00)
[2020-09-09 10:04] LABS: HEMATOCRIT 31.4 % (32.4-45.2); HEMOGLOBIN 9.5 GM/dL (10.7-15.3); MCH 21.3 pg (25.7-33.7); MCHC 30.2 g/dl (32.0-36.0); MEAN CELL VOLUME 70.7 fl (80-96); MEAN PLT VOLUME 9.2 fl (7.5-11.1); PLATELET COUNT 414 10^3/uL (134-434); RBC 4.44 M/mm3 (3.60-5.2); RDW 18.3 % (11.6-15.6); WHITE BLOOD COUNT 8.6 K/mm3 (4.0-10.0)
[2020-09-09 10:12] LABS: CALCIUM 9.2 mg/dL (8.5-10.1)
[2020-09-09 10:13] LABS: ALBUMIN 3.9 g/dl (3.4-5.0)
[2020-09-09 10:14] LABS: BLOOD UREA NITROGEN 9.3 mg/dL (7-18)
[2020-09-09 10:16] LABS: CREATININE 0.5 mg/dL (0.55-1.3)
[2020-09-09 10:18] LABS: BILIRUBIN,TOTAL 0.3 mg/dL (0.2-1); TOT PROT 7.4 g/dl (6.4-8.2)
[2020-09-09] MEDS ORDERED: LIDOCAINE 5% TOPICAL PATCH TP SCH (11:00)
[2020-09-09] MEDS ORDERED: buPROPion HCL 100 MG TABLET PO SCH (14:00)
[2020-09-09] MEDS: buPROPion HCL 100 MG TABLET PO SCH ×2 (14:18→18:20)
[2020-09-09] MEDS: ACETAMINOPHEN 325 MG TABLET (FP) PO PRN (15:21)
[2020-09-09] MEDS: MELATONIN 5 MG TABLETS PO SCH (22:20)
[2020-09-09] MEDS: THIAMINE HCL 100 MG TABLET (FP) PO SCH (22:20)
[2020-09-09] MEDS: diazePAM 5 MG TABLET PO PRN (22:25)
[2020-09-09] MEDS: LIDOCAINE PATCH REMOVAL MC SCH (22:57)
[2020-09-10] MEDS: LEVOTHYROXINE NA 25 MCG TABLET (FP) PO SCH (06:15)
[2020-09-10] MEDS: buPROPion HCL 100 MG TABLET PO SCH ×3 (06:15→17:45)
[2020-09-10] MEDS: ACETAMINOPHEN 325 MG TABLET (FP) PO PRN ×2 (07:22→22:13)
[2020-09-10] MEDS ORDERED: METHADONE HCL 10 MG TABLET (FOR DETOX USE ONLY) PO ONE (10:00)
[2020-09-10] MEDS: hydrOXYzine PAMOATE 25 MG CAPSULE (FP) PO PRN ×2 (10:08→22:12)
[2020-09-10] MEDS: PRENATAL VITAMINS W/ FOLIC ACID TABLET (FP) PO SCH (10:08)
[2020-09-10] MEDS: LIDOCAINE 5% TOPICAL PATCH TP SCH (10:09)
[2020-09-10] MEDS: NICOTINE 7 MG/24 HOURS TOPICAL PATCH TD SCH (10:09)
[2020-09-10] MEDS: METHOCARBAMOL 750 MG TABLET PO PRN ×2 (14:10→19:04)
[2020-09-10] MEDS: diazePAM 5 MG TABLET PO PRN ×2 (14:15→22:12)
[2020-09-10] MEDS: IBUPROFEN 400 MG TABLET (FP) PO PRN (17:43)
[2020-09-10] MEDS: THIAMINE HCL 100 MG TABLET (FP) PO SCH (22:12)
[2020-09-10] MEDS: MELATONIN 5 MG TABLETS PO SCH (22:12)
[2020-09-10] MEDS: LIDOCAINE PATCH REMOVAL MC SCH (23:33)
[2020-09-11] MEDS: METHOCARBAMOL 750 MG TABLET PO PRN ×4 (01:08→23:06)
[2020-09-11] MEDS: IBUPROFEN 400 MG TABLET (FP) PO PRN ×2 (01:12→15:56)
[2020-09-11] MEDS: ACETAMINOPHEN 325 MG TABLET (FP) PO PRN (05:56)
[2020-09-11] MEDS: buPROPion HCL 100 MG TABLET PO SCH ×3 (05:58→17:49)
[2020-09-11] MEDS: LEVOTHYROXINE NA 25 MCG TABLET (FP) PO SCH (06:20)
[2020-09-11] MEDS ORDERED: METHADONE HCL 10 MG TABLET (FOR DETOX USE ONLY) ONE (09:07)
[2020-09-11] MEDS ORDERED: METHADONE HCL 5 MG TABLET (FOR DETOX USE ONLY) ONE (09:07)
[2020-09-11] MEDS ORDERED: METHADONE (DETOX) 10 MG, METHADONE (DETOX) 5 MG PO ONE (10:00)
[2020-09-11] MEDS ORDERED: MELATONIN 5 MG TABLETS PO SCH (10:07)
[2020-09-11] MEDS: diazePAM 5 MG TABLET PO PRN ×3 (10:14→22:25)
[2020-09-11] MEDS: PRENATAL VITAMINS W/ FOLIC ACID TABLET (FP) PO SCH (10:14)
[2020-09-11] MEDS: LIDOCAINE 5% TOPICAL PATCH TP SCH (10:17)
[2020-09-11] MEDS: NICOTINE 7 MG/24 HOURS TOPICAL PATCH TD SCH (10:19)
[2020-09-11] MEDS ORDERED: MELATONIN 5 MG TABLETS PO PRN (22:00)
[2020-09-11] MEDS: THIAMINE HCL 100 MG TABLET (FP) PO SCH (22:24)
[2020-09-11] MEDS: FERROUS SO4 325 MG TABLET (FP) PO SCH (22:24)
[2020-09-11] MEDS: LIDOCAINE PATCH REMOVAL MC SCH (22:27)
[2020-09-11] MEDS: hydrOXYzine PAMOATE 50 MG CAPSULE (FP) PO PRN (23:06)
[2020-09-12] MEDS: LEVOTHYROXINE NA 100 MCG TABLET (FP) PO SCH (06:21)
[2020-09-12] MEDS: buPROPion HCL 100 MG TABLET PO SCH ×3 (06:21→18:17)
[2020-09-12] MEDS: METHOCARBAMOL 750 MG TABLET PO PRN ×3 (06:24→22:26)
[2020-09-12] MEDS: IBUPROFEN 400 MG TABLET (FP) PO PRN ×3 (06:24→22:25)
[2020-09-12] MEDS ORDERED: METHADONE HCL 10 MG TABLET (FOR DETOX USE ONLY) PO ONE (10:00)
[2020-09-12] MEDS: FERROUS SO4 325 MG TABLET (FP) PO SCH ×2 (10:01→22:25)
[2020-09-12] MEDS: LIDOCAINE 5% TOPICAL PATCH TP SCH (10:01)
[2020-09-12] MEDS: NICOTINE 7 MG/24 HOURS TOPICAL PATCH TD SCH (10:02)
[2020-09-12] MEDS: PRENATAL VITAMINS W/ FOLIC ACID TABLET (FP) PO SCH (10:02)
[2020-09-12] MEDS: diazePAM 5 MG TABLET PO PRN (10:03)
[2020-09-12] MEDS: ACETAMINOPHEN 325 MG TABLET (FP) PO PRN (13:37)
[2020-09-12] MEDS: hydrOXYzine PAMOATE 50 MG CAPSULE (FP) PO PRN (14:49)
[2020-09-12] MEDS: cloNIDine HCL 0.1 MG TABLET PO PRN ×2 (18:20→22:28)
[2020-09-12] MEDS: LIDOCAINE PATCH REMOVAL MC SCH (22:23)
[2020-09-12] MEDS: THIAMINE HCL 100 MG TABLET (FP) PO SCH (22:25)
[2020-09-13] MEDS ORDERED: METHADONE HCL 5 MG TABLET (FOR DETOX USE ONLY) PO ONE (06:00)
[2020-09-13] MEDS: LEVOTHYROXINE NA 100 MCG TABLET (FP) PO SCH (06:27)
[2020-09-13] MEDS: buPROPion HCL 100 MG TABLET PO SCH (06:28)
[2020-09-13] MEDS: METHOCARBAMOL 750 MG TABLET PO PRN (06:31)
[2020-09-13] MEDS: IBUPROFEN 400 MG TABLET (FP) PO PRN (06:31)
[2020-09-13] MEDS: hydrOXYzine PAMOATE 50 MG CAPSULE (FP) PO PRN (08:48)
[2020-09-13] MEDS: FERROUS SO4 325 MG TABLET (FP) PO SCH (10:00)
[2020-09-13] MEDS: NICOTINE 7 MG/24 HOURS TOPICAL PATCH TD SCH (10:00)
[2020-09-13] MEDS: LIDOCAINE 5% TOPICAL PATCH TP SCH (10:00)
[2020-09-13] MEDS: PRENATAL VITAMINS W/ FOLIC ACID TABLET (FP) PO SCH (10:00)
[2020-09-13 11:04] VITALS: BP 124/79; PULSE 106; TEMP 98.1
== END 2020-09-13 10:36 | disposition home or self-care (01) | DRG 897 ==
LOC: YASAS 12:36 → Y3N 15:19 → Y6N 09-09 16:32
PROVIDERS: ADMIT Allergy & Immunology; ATTEND Allergy & Immunology
PROC: HZ2ZZZZ Detoxification Services for Substance Abuse Treatment (ICD-10-PCS; principal; 2020-09-08)
DX: F11.23 Opioid dependence with withdrawal (principal); F19.282 Other psychoactive substance dependence with psychoactive substance-induced sleep disorder; F19.280 Other psychoactive substance dependence with psychoactive substance-induced anxiety disorder; F17.210 Nicotine dependence, cigarettes, uncomplicated; F19.24 Other psychoactive substance dependence with psychoactive substance-induced mood disorder; F32.9 Major depressive disorder, single episode, unspecified; F41.9 Anxiety disorder, unspecified; D50.9 Iron deficiency anemia, unspecified; E03.9 Hypothyroidism, unspecified; M17.0 Bilateral primary osteoarthritis of knee; M54.5 Low back pain; G89.29 Other chronic pain; Z62.810 Personal history of physical and sexual abuse in childhood; E66.9 Obesity, unspecified; Z68.36 Body mass index [BMI] 36.0-36.9, adult; Z88.0 Allergy status to penicillin
CPT/HCPCS: 36415; 80053; 81025; 82728; 83550; 85027; 86780; C9803; J0735; U0003; U0005